=== PATIENT | male | born 1985 | race Caucasian/White ===

== ENCOUNTER → 2016-09-16 | Day surgery (SDC) | payer OTHER ==
[~2016-09-16] VITALS: Ht 182.9 cm; Wt 88.6 kg
[~2016-09-16] MED LIST: BACTRIM DS 8001 TAB PO; CELEXA; CEPHALEXIN500 M1 PO; CLONAZEPAM PO; COLACE 100100 MG/CAP PO; LORTAB 5/500 501 TAB PO; NAPROSYN500 MG PO; NORCO 325 MG-7.1 TAB PO; PERCOCET 325 MG1 TA2 PO; PROPRANOLOL10 MG PO; PROZAC 20MG20 MG PO; XANAX 0.5MG0.5 MG PO; ZOFRAN 4MG T4 MG/TAB PO; ZOLOFT
[2016-09-16 06:31] VITALS: BP 155/69; PULSE 71; TEMP 97.8
[2016-09-16 09:02] VITALS: TEMP 97.9
[2016-09-16 09:10] VITALS: BP 158/64; PULSE 87
[2016-09-16 09:25] VITALS: BP 162/66; PULSE 83
[2016-09-16 09:40] VITALS: BP 166/63; PULSE 84
== END ==
LOC: SDCO 05:31
DX: S43.431A Superior glenoid labrum lesion of right shoulder, initial encounter (principal); S46.211A Strain of muscle, fascia and tendon of other parts of biceps, right arm, initial encounter
CPT/HCPCS: C1713; J0171; J0360; J0690; J1100; J2250; J2270; J2405; J2704; J3010; J7120

== ENCOUNTER → 2017-02-11 | Outpatient (REF) | LOC: WSOH 10:46 | DX: Z02.89 Encounter for other administrative examinations (principal) ==

== ENCOUNTER → 2018-10-17 | Outpatient (CLI) | payer BC ==
[2018-10-17 15:57] LABS: BASO % 1.2 % (0.0-2.0); EOS # 0.1 (0.0-0.7); EOS % 1.5 % (0-4.0); GRAN # 2.3 (1.4-6.5); GRAN % 66.7 % (42.2-75.2); HEMATOCRIT 43.4 % (42.0-52.0); HEMOGLOBIN 14.3 g/dl (13.5-18.0); LYMPH # 0.8 (1.2-3.4); MEAN CELL VOLUME 96 fl (80.0-100.0); MEAN CORPUSCULAR HEMOGLOBIN 32 pg (27.0-31.0); MEAN CORPUSCULAR HGB CONC 33 g/dl (33.0-37.0); MEAN PLATELET VOLUME 12.4 fl (7.4-10.4); MONO # 0.3 (0.1-0.6); MONO % 7.6 % (1.7-9.3); PLATELET COUNT 198 K/mm3 (130-400); RED BLOOD COUNT 4.54 M/mm3 (4.20-5.60); REDCELL DISTRIBUTION WIDTH-CV 12.5 % (11.5-14.5)
[2018-10-17 16:14] LABS: ALANINE AMINOTRANSFERASE 26 U/L (21-72); ALBUMIN 4.4 gm/dL (3.5-5.0); ALKALINE PHOSPHATASE 97 U/L (50-136); ANION GAP 7 mmol/L (7-16); AST,SGOT 62 U/L (15-37); BILIRUBIN,TOTAL 0.5 mg/dL (0.0-1.0); BLOOD UREA NITROGEN 16 mg/dL (9-20); CALCIUM 10.1 mg/dL (8.4-10.2); CARBON DIOXIDE 32 mmol/L (22-30); CHLORIDE 101 mmol/L (98-107); CREATININE, serum 0.99 (0.66-1.25); GLUCOSE 106 mg/dL (74-106); POTASSIUM 4.6 mmol/L (3.4-5.0); SODIUM 140 mmol/L (137-145)
[2018-10-17 16:30] LABS: TROPONIN-I < 0.012 ng/mL (0.000-0.035)
== END ==
LOC: COL.LAB 13:59
PROVIDERS: Physician Assistant
DX: R07.9 Chest pain, unspecified (principal)

== ENCOUNTER → 2018-10-21 | Outpatient (CLI) | payer BC | LOC: ZCOL.LAB 10-17 17:08 | DX: R07.9 Chest pain, unspecified (principal) ==

== ENCOUNTER 2022-10-20 19:46 | Emergency (ER) | payer BC ==
[~2022-10-20] VITALS: Ht 180.3 cm; Wt 102.3 kg
[2022-10-20 21:06] VITALS: BP 159/94; PULSE 88; TEMP 98.4
== END 2022-10-20 21:06 | disposition home or self-care (01) ==
LOC: COL.ER 19:46
DX: F10.10 Alcohol abuse, uncomplicated (principal); Z28.311 Partially vaccinated for COVID-19